=== PATIENT | female | born 1930 | race Caucasian/White ===

== ENCOUNTER → 2016-11-12 | Outpatient (CLI) | payer MEDICARE ==
[2016-11-12 11:36] LABS: ABSOLUTE LYMPHOCYTES (AUTO) 0.8 10^3/uL (0.5-4.7); ABSOLUTE MONOCYTES (AUTO) 0.6 10^3/uL (0.1-1.4); ABSOLUTE NEUT (AUTO) 14.1 10^3/uL (1.7-8.2); BASOPHILS % (AUTO) 0.1 % (0-2); HEMATOCRIT 42.6 % (36.0-47.0); HEMOGLOBIN 14.4 g/dL (12.0-15.5); HGB HCT DIFFERENCE 0.6; LYMPHOCYTES % (AUTO) 5.1 % (13-45); MEAN CORPUSCULAR HEMOGLOBIN 30.2 pg (27.0-33.4); MEAN CORPUSCULAR HGB CONC 33.9 g/dL (32.0-36.0); MEAN CORPUSCULAR VOLUME 89 fl (80-97); MONOCYTES % (AUTO) 3.7 % (3-13); RED BLOOD COUNT 4.78 10^6/uL (3.72-5.28); RED CELL DISTRIBUTION WIDTH 13.4 % (11.5-14.0); SEGMENTED NEUTROPHILS % (AUTO) 91.1 % (42-78); WHITE BLOOD COUNT 15.5 10^3/uL (4.0-10.5)
[2016-11-12 11:57] LABS: ALANINE AMINOTRANSFERASE 25 U/L (9-52); ALBUMIN 4.4 g/dL (3.5-5.0); ALKALINE PHOSPHATASE 126 U/L (38-126); ANION GAP 13 (5-19); ASPARTATE AMINO TRANSFERASE 33 U/L (14-36); BILIRUBIN,DIRECT 0.3 mg/dL (0.0-0.4); BILIRUBIN,TOTAL 0.9 mg/dL (0.2-1.3); BLOOD UREA NITROGEN 24 mg/dL (7-20); CALCIUM 9.9 mg/dL (8.4-10.2); CARBON DIOXIDE 25 mmol/L (22-30); CHLORIDE 104 mmol/L (98-107); CREATININE RESULT 1.08 mg/dL (0.52-1.25); GLUCOSE 189 mg/dL (75-110); LIPASE 57.4 U/L (23-300); POTASSIUM 5.5 mmol/L (3.6-5.0); SODIUM 142.4 mmol/L (137-145); TOTAL PROTEIN 7.7 g/dL (6.3-8.2)
--- NOTE | 2016-11-12 14:05 | RADIOLOGY REPORT (SQ) ---
EXAM DESCRIPTION: CT ABD/PELVIS WITH IV ORAL COMPLETED DATE/TIME: 11/12/2016 1:46 pm REASON FOR STUDY: MELENA (K92.1) K92.1 MELENA lower abdominal/pelvic pain COMPARISON: None. TECHNIQUE: CT scan of the abdomen and pelvis performed using helical scanning technique with dynamic intravenous contrast injection. Patient drank Oral contrast. Images reviewed with lung, soft tissue, and bone windows. Reconstructed coronal and sagittal MPR imag es reviewed. Delayed images for evaluation of the urinary system also acquired. All images stored on PACS. All CT scanners at this facility use dose modulation, iterative reconstruction, and/or weight based d osing when appropriate to reduce radiation dose to as low as reasonably achievable (ALARA). [facility]: Dose Right [facility]: CareDose [facility]: Dose Right [facility]: Teradose 4D [facility]: [employer] CONTRAST TYPE AND DOSE: contrast/concentration: Isovue 370.00 mg/ml; Total Contrast Delivered: 52.0 ml; Total Saline Delivered: 65.0 ml RENAL FUNCTION: Creatinine 1.0 RADIATION DOSE: Up-to-date CT equipment and radiation dose reduction techniques were employed. CTDIv ol: NaN - NaN mGy. DLP: 0 mGy-cm.. LIMITATIONS: None. FINDINGS: LOWER CHEST: Mild cardiomegaly. No nodules or infiltrates. LIVER: Normal size. Mildly prominent intrahepatic bile ducts without common duct dilatation. 2.7 cm cyst left lobe liver subdiaphragmatic surface, less than 1 cm cyst versus hemangioma left lobe liver sub- diaphragmatic surface. 1 cm cyst inferior right lobe liver. SPLEEN: Normal size. No focal lesions. PANCREAS: No masses. No significant calcifications. No adjacent inflammation or peripancreatic fluid collections. Pancreatic duct not dilated. GALLBLADDER: Gallstones. No inflammatory changes to suggest cholecystitis. ADRENAL GLANDS: No significant masses or asymmetry. RIGHT KIDNEY AND URETER: No solid masses. No significant calcifications. No hydronephrosis or hyd roureter. LEFT KIDNEY AND URETER: No solid masses. No significant calcifications. No hydronephrosis or hydr oureter. AORTA AND VESSELS: No aneurysm. No dissection. Renal arteries, SMA, celiac without stenosis. RETROPERITONEUM: No retroperitoneal adenopathy, hemorrhage or masses. BOWEL AND PERITONEAL CAVITY: There is oral contrast throughout the gastrointestinal tract. No CT taina dence of bowel obstruction or free intraperitoneal air or fluid. There is colon wall thickening lizabeth g the hepatic flexure colon and proximal half of the descending colon. This could indicate infectiou s or ischemic colitis. These findings are best shown on coronal reconstruction images 27 through 40. There are few sigmoid colon diverticuli present without CT evidence of acute diverticulitis APPENDIX: Not well seen. No right lower quadrant inflammatory change PELVIS: No mass. No free fluid. Normal bladder. Post hysterectomy ABDOMINAL WALL: No masses. No hernias. BONES: Mild degenerative change lower lumbar spine OTHER: No other significant finding. IMPRESSION: Colon wall thickening and luminal narrowing along the splenic flexure and proximal desce nding colon. Findings worrisome for infectious or ischemic colitis. Sigmoid colon diverticuli without CT evidence of acute diverticulitis Multiple stones in the gallbladder Report called to Janel VANG at the time of dictation TECHNICAL DOCUMENTATION: JOB ID: [id number] Quality ID # [id number]: Final reports with documentation of one or more dose reduction techniques (e.g., Au tomated exposure control, adjustment of the mA and/or kV according to patient size, use of iterative reconstruction technique) 2010 [employer]- All Rights Reserved
== END ==
LOC: RAD 11:06
PROVIDERS: ATTEND Physician Assistant
DX: K92.1 Melena (principal); K57.30 Diverticulosis of large intestine without perforation or abscess without bleeding; K80.20 Calculus of gallbladder without cholecystitis without obstruction; I51.7 Cardiomegaly
CPT/HCPCS: 36415; 74177; 80053; 83690; 85025

== ENCOUNTER 2017-11-03 16:13 | Emergency (ER) | payer MEDICARE ==
[2017-11-03] MEDS ORDERED: IBUPROFEN 600 MG TABLET PO ONE (16:37)
--- NOTE | 2017-11-03 16:40 | ER Document Report ---
ED General Pain - General Chief Complaint: Low Back Pain Stated Complaint: FALL/LOWER BACK PAIN Time Seen by Provider: 11/03/17 16:36 Mode of Arrival: Ambulatory Information source: Patient Notes: Chief complaint: fall. History of complain:( obtained from----patient) 86 years old female while was getting out of the back door of her house, tripped and fell 2 steps and landed on her back. Since then having lower back pain therefore presented to the ED. She was ambulatory. Has no discomfort on walking. No head injury loss of consciousness. No neck pain neck stiffness. Denies any injury or pain over the thoracal upper lumbar region. No pain or injury to the upper limbs and lower limbs. Onset: Just prior to arrival sudden Duration: Just prior to arrival Severity: Mild to moderate Quality: Sharp Context: 4 Exacerbating factor and relieving factors: Change of position from sitting to standing REVIEW OF SYSTEMS: CONSTITUTIONAL : Denies fever, chills, or sweats. Denies recent illness. EENT: Denies eye, ear, throat, or mouth pain or symptoms. Denies nasal or sinus congestion or discharge. Denies throat, tongue, or mouth swelling or difficulty swallowing. CARDIOVASCULAR: Denies chest pain. Denies palpitations or racing or irregular heart beat. Denies ankle edema. RESPIRATORY: Denies cough, cold, or chest congestion. Denies shortness of breath, difficulty breathing, or wheezing. GASTROINTESTINAL: Denies distention. Denies nausea, vomiting, or diarrhea. Denies blood in vomitus, stools, or per rectum. Denies black, tarry stools. Denies constipation. GENITOURINARY: Denies difficulty urinating, painful urination, burning, frequency, blood in urine, or discharge. FEMALE GENITOURINARY: Denies vaginal bleeding, heavy or abnormal periods, irregular periods. Denies vaginal discharge or odor. MUSCULOSKELETAL: Denies back or neck pain or stiffness. Denies joint pain or swelling. SKIN: Denies rash, lesions or sores. HEMATOLOGIC : Denies easy bruising or bleeding. LYMPHATIC: Denies swollen, enlarged glands. NEUROLOGICAL: Denies confusion or altered mental status. Denies passing out or loss of consciousness. Denies dizziness or lightheadedness. Denies headache. Denies weakness or paralysis or loss of use of either side. Denies problems with gait or speech. Denies sensory loss, numbness, or tingling. Denies seizures. PSYCHIATRIC: Denies anxiety or stress. Denies depression, suicidal ideation, or homicidal ideation. ALL OTHER SYSTEMS REVIEWED AND NEGATIVE. PHYSICAL EXAMINATION: GENERAL: Well-appearing, well-nourished and in no acute distress. HEAD: Atraumatic, normocephalic. EYES: Pupils equal round and reactive to light, extraocular movements intact, conjunctiva are normal. ENT: Nares patent, oropharynx clear without exudates. Moist mucous membranes. NECK: Normal range of motion, supple without lymphadenopathy LUNGS: Breath sounds clear to auscultation bilaterally and equal. No wheezes rales or rhonchi. HEART: Regular rate and rhythm without murmurs ABDOMEN: Soft, nontender, nondistended abdomen. No guarding, no rebound. No masses appreciated. Examination of genitals-deferred Musculoskeletal: Normal range of motion, no pitting or edema. No cyanosis. Lower lumbar region-tenderness over the sacral lumbar region of the back. No obvious deformity. No swelling. Neurovascular function distally was within normal limit. NEUROLOGICAL: Cranial nerves grossly intact. Normal speech, normal gait. Normal sensory, motor exams PSYCH: Normal mood, normal affect. SKIN: Warm, Dry, normal turgor, no rashes or lesions noted. Dictation was performed using [employer] voice recognition software TRAVEL OUTSIDE OF THE [place] IN LAST 30 DAYS: No - Related Data Allergies/Adverse Reactions: No Known Allergies Allergy (Verified 11/03/17 16:23) Past Medical History - Social History Smoking Status: Never Smoker Chew tobacco use (# tins/day): No Frequency of alcohol use: None Drug Abuse: None Lives with: Family Family History: Reviewed & Not Pertinent Patient has suicidal ideation: No Patient has homicidal ideation: No - Past Medical History Cardiac Medical History: Reports: Hx Hypertension Denies: Hx Heart Attack Pulmonary Medical History: Denies: Hx Asthma Neurological Medical History: Denies: Hx Cerebrovascular Accident, Hx Seizures Renal/ Medical History: Denies: Hx Peritoneal Dialysis GI Medical History: Denies: Hx Hepatitis, Hx Hiatal Hernia, Hx Ulcer Infectious Medical History: Denies: Hx Hepatitis Past Surgical History: Reports: Hx Hysterectomy. Denies: Hx Mastectomy, Hx Open Heart Surgery, Hx Pacemaker Review of Systems - Review of Systems Notes: Dictated Physical Exam - Vital signs Vitals: Temp Pulse Resp BP Pulse Ox 98.1 F 84 18 155/78 H 95 11/03/17 16:20 11/03/17 16:20 11/03/17 16:20 11/03/17 16:20 11/03/17 16:20 - Notes Notes: Dictated Course - Vital Signs Vital signs: Temp Pulse Resp BP Pulse Ox 97.9 F 60 18 167/82 H 99 11/03/17 18:31 11/03/17 18:31 11/03/17 18:31 11/03/17 18:31 11/03/17 18:31 - Diagnostic Test Radiology reviewed: Reports reviewed - X-ray of the lumbosacral spine/pelvic girdle reported by radiologist as no acute fractures Discharge - Discharge Clinical Impression: Lower back pain Qualifiers: Chronicity: acute Back pain laterality: bilateral Sciatica presence: without sciatica Qualified Code(s): M54.5 - Low back pain Fall Qualifiers: Encounter type: initial encounter Qualified Code(s): W19.XXXA - Unspecified fall, initial encounter Condition: Fair Disposition: HOME, SELF-CARE Instructions: Low Back Pain ([facility]), Muscle Strain ([facility]) Referrals: WEI JACKSON PA [PHYSICIAN [facility]] - Follow up as needed
--- NOTE | 2017-11-03 17:28 | RADIOLOGY REPORT (SQ) ---
EXAM DESCRIPTION: PELVIS AP COMPLETED DATE/TIME: 11/03/2017 5:18 pm REASON FOR STUDY: Fall with back injury COMPARISON: None. NUMBER OF VIEWS: One view TECHNIQUE: AP Pelvis LIMITATIONS: None. FINDINGS: MINERALIZATION: Normal. HIPS: No acute fracture or dislocation. No worrisome bone lesions. Mild degenerative changes are pre sent bilaterally. PELVIS AND SACRUM: No acute fracture or dislocation. No worrisome bone lesions. PUBIS AND ISCHIUM: No acute fracture. LOWER LUMBAR SPINE: No significant findings as visualized. SOFT TISSUES: No findings. OTHER: No other significant finding. IMPRESSION: NEGATIVE STUDY OF THE PELVIS. TECHNICAL DOCUMENTATION: JOB ID: [id number] [employer]- All Rights Reserved Reading location - IP/workstation name: [email or web address]
--- NOTE | 2017-11-03 17:31 | RADIOLOGY REPORT (SQ) ---
EXAM DESCRIPTION: L SPINE WHOLE COMPLETED DATE/TIME: 11/03/2017 5:18 pm REASON FOR STUDY: Fall with back injury COMPARISON: CT abdomen and pelvis 11/12/2016 NUMBER OF VIEWS: Five views including obliques. TECHNIQUE: AP, lateral, oblique, and sacral radiographic images acquired of the lumbar spine. LIMITATIONS: None. FINDINGS: MINERALIZATION: Osteopenia. SEGMENTATION: Normal. No transitional anatomy. ALIGNMENT: Mild levoconvex lateral curvature may be positional. VERTEBRAE: Maintained height. No fracture or worrisome bone lesion. DISCS: Mild loss of intervertebral disc height involving predominantly the L3/4 level. POSTERIOR ELEMENTS: Pedicles and facets are intact. Mild facet arthropathy seen at all levels. No p ars defect or posterior arch defects. HARDWARE: None in the spine. PARASPINAL SOFT TISSUES: Normal. PELVIS: Intact as visualized. No fractures or worrisome bone lesions. SI joints intact. OTHER: No other significant finding. IMPRESSION: Mild multilevel spondylotic change. No evidence of acute osseous injury. TECHNICAL DOCUMENTATION: JOB ID: [id number] [employer]- All Rights Reserved Reading location - IP/workstation name: [email or web address]
[2017-11-03 18:35] VITALS: BP 167/82
== END 2017-11-03 18:36 | disposition home or self-care (01) ==
LOC: ER 16:13
DX: M54.5 Low back pain (principal); W10.9XXA Fall (on) (from) unspecified stairs and steps, initial encounter; Y92.008 Other place in unspecified non-institutional (private) residence as the place of occurrence of the external cause; I10 Essential (primary) hypertension
CPT/HCPCS: 99283; 72110; 72170; A9270

== ENCOUNTER → 2018-05-27 | Outpatient (CLI) | payer MEDICARE ==
[2018-05-27 13:45] LABS: ANION GAP 11 (5-19); BLOOD UREA NITROGEN 22 mg/dL (7-20); CALCIUM 9.8 mg/dL (8.4-10.2); CARBON DIOXIDE 28 mmol/L (22-30); CHLORIDE 103 mmol/L (98-107); GLUCOSE 97 mg/dL (75-110); POTASSIUM 4.7 mmol/L (3.6-5.0); SODIUM 142.2 mmol/L (137-145)
== END ==
LOC: OD 12:39
PROVIDERS: ATTEND Family Medicine
DX: E87.5 Hyperkalemia (principal)
CPT/HCPCS: 36415; 80048

== ENCOUNTER → 2018-09-07 | Outpatient (CLI) | payer MEDICAID, MEDICARE ==
--- NOTE | 2018-09-07 16:40 | RADIOLOGY REPORT (SQ) ---
EXAM DESCRIPTION: CT HEAD WITHOUT COMPLETED DATE/TIME: 09/07/2018 3:17 pm REASON FOR STUDY: R41.3 OTHER AMNESIA R41.3 OTHER AMNESIA COMPARISON: 07/26/2014 TECHNIQUE: Axial images acquired through the brain without intravenous contrast. Images reviewed wi th bone, brain and subdural windows. Additional sagittal and coronal reconstructions were generated. Images stored on PACS. All CT scanners at this facility use dose modulation, iterative reconstruction, and/or weight based d osing when appropriate to reduce radiation dose to as low as reasonably achievable (ALARA). [facility]: Dose Right [facility]: CareDose [facility]: Dose Right [facility]: Teradose 4D [facility]: [employer] RADIATION DOSE: CT Rad equipment meets quality standard of care and radiation dose reduction techniq ues were employed. CTDIvol: 48.5 mGy. DLP: 855 mGy-cm. mGy. LIMITATIONS: None. FINDINGS: VENTRICLES: Prominent ventricles secondary to involutional atrophy. CEREBRUM: Cortical atrophy. No masses. No hemorrhage. No midline shift. No evidence for acute inf arction. Extensive areas of low density in the white matter most likely chronic small vessel ischemic changes. CEREBELLUM: No masses. No hemorrhage. No alteration of density. No evidence for acute infarction. EXTRAAXIAL SPACES: No fluid collections. No masses. ORBITS AND GLOBE: No intra- or extraconal masses. Normal contour of globe without masses. CALVARIUM: No fracture. PARANASAL SINUSES: No fluid or mucosal thickening. SOFT TISSUES: No mass or hematoma. OTHER: No other significant finding. IMPRESSION: MICROVASCULAR ISCHEMIA AND GENERALIZED ATROPHY. NO ACUTE IMAGING FINDINGS IN THE BRAIN EVIDENCE OF ACUTE STROKE: NO. COMMENT: Quality ID # [id number]: Final reports with documentation of one or more dose reduction techniques (e.g., Automated exposure control, adjustment of the mA and/or kV according to patient size, use of iterative reconstruction technique) TECHNICAL DOCUMENTATION: JOB ID: [id number] [employer]- All Rights Reserved Reading location - IP/workstation name: [email or web address]
== END ==
LOC: RAD 14:48
PROVIDERS: ATTEND Physician Assistant
DX: R41.3 Other amnesia (principal)
CPT/HCPCS: 70450

== ENCOUNTER → 2018-12-30 | Outpatient (CLI) | payer MEDICARE ==
--- NOTE | 2018-12-30 11:10 | WOMENS IMAGING REPORT ---
EXAM DESCRIPTION: U/S ABDOMEN TOTAL COMPLETED DATE/TIME: 12/30/2018 11:00 am REASON FOR STUDY: K80/20 CALCULUS OF GALLBLADDER W/O CHOLECYSTITIS K80.20 CALCULUS OF GALLBLADDER W /O CHOLECYSTITIS W/O OBSTRUC COMPARISON: 11/12/2016 TECHNIQUE: Dynamic and static grayscale images acquired of the abdomen and recorded on PACS. Additio nal selected color Doppler and spectral images recorded. LIMITATIONS: None. FINDINGS: PANCREAS: Limited visualization due to overlying bowel gas. LIVER: There is a cyst in the left lobe stable from 2017. Echogenicity is normal. LIVER VASCULATURE: Normal directional flow of the main portal vein and hepatic veins. GALLBLADDER: Echodensity along the dependent wall of gallbladder consistent with gallstones. No thic kening of gallbladder wall. No pericholecystic fluid collection. ULTRASOUND-DETECTED SCHOFIELD'S SIGN: Negative. INTRAHEPATIC DUCTS AND COMMON DUCT: CBD and intrahepatic ducts normal caliber. No filling defects. INFERIOR VENA CAVA: Normal flow. AORTA: No aneurysm. RIGHT AND LEFT KIDNEY: Normal size. Normal echogenicity. No solid or suspicious masses. No hydroneph rosis. No calcifications. SPLEEN: Normal in size. No masses. PERITONEAL AND RIGHT PLEURAL SPACE: No ascites or effusions. OTHER: No other significant finding. IMPRESSION: Gallstones otherwise normal abdominal ultrasound. TECHNICAL DOCUMENTATION: JOB ID: [id number] [employer]- All Rights Reserved Reading location - IP/workstation name: [email or web address]
== END ==
LOC: WI 10:15
PROVIDERS: ATTEND Family Medicine
DX: K80.20 Calculus of gallbladder without cholecystitis without obstruction (principal)
CPT/HCPCS: 76700

== ENCOUNTER → 2020-02-28 | Outpatient (CLI) | payer MEDICARE ==
--- NOTE | 2020-03-01 00:16 | XCELERA REPORT ---
[address] [address] Transthoracic Echocardiogram Report Name: MADISYN TERRELL Age: 89 yrs Gender: Female : 1930 Patient Status: Outpatient Patient Location: Study Date: 02/28/2020 01:10 PM Height: 65 in Weight: 102 lb BSA: 1.5 m2 Procedure: A two-dimensional transthoracic echocardiogram with color flow and Doppler was performed. Study Quality: Poor. Reason For Study: SOB History: Shortness of breath. Ordering Physician: WEI TRIPATHI Performed By: Mara Katz Interpretation Summary There is normal left ventricular wall thickness. LV EF is 40% Left ventricular systolic function is moderately reduced. There is moderate global hypokinesis of the left ventricle. There is no thrombus. CANNOT ASSESS ASD,VSD,OR PFO. The right ventricle is moderately dilated. There is mild right ventricular hypertrophy. The right ventricular systolic function is mild to moderately reduced. The right atrium is moderately dilated. The left atrium is moderately dilated. There is no vegetation seen on the mitral valve. There is no mitral valve stenosis. There is a mild to moderate amount of mitral regurgitation There is no aortic valvular vegetation. There is no aortic valve stenosis There is aortic sclerosis without aortic stenosis. No aortic regurgitation is present. There is no tricuspid stenosis. There is a moderate to severe amount of tricuspid regurgitation There is mild pulmonary hypertension by echo RVSP is 33 mm of Hg, with RA mean of 10. There is no pulmonic valvular stenosis. There is no pulmonic valvular regurgitation. The aortic root is not well visualized but is probably normal size. The inferior vena cava was not visualized There is no pericardial effusion. MMode/2D Measurements & Calculations RVDd: 2.8 cm LVIDd: 4.0 cm FS: 21.1 % Ao root diam: 2.7 cm IVSd: 0.92 cm LVIDs: 3.2 cm EDV(Teich): 71.3 mlAo root area: LVPWd: 0.93 cm ESV(Teich): 40.3 ml5.9 cm2 EF(Teich): 43.5 % LA dimension: 3.8 cm LVOT diam: 2.0 cm LVLd ap4: 6.4 cm SV(MOD-sp4): LVOT area: EDV(MOD-sp4): 30.0 ml 75.0 ml 3.0 cm2 LVLs ap4: 5.6 cm ESV(MOD-sp4): 45.0 ml EF(MOD-sp4): 40.0 % Doppler Measurements & Calculations MV E max linda: MV P1/2t max linda: Ao V2 max: LV V1 max P.3 cm/sec 100.8 cm/sec 81.4 cm/sec 1.0 mmHg MV P1/2t: 73.1 msec Ao max P.7 mmHgLV V1 max: MVA(P1/2t): 3.0 cm2 MAXWELL(V,D): 1.9 cm2 50.1 cm/sec MV dec slope: LV dP/dt: 826.0 mmHg/s 403.9 cm/sec2 MV dec time: 0.13 sec PA V2 max: TR max linda: MV P1/2t-pr_phl: 70.6 cm/sec 237.0 cm/sec 73.1 msec PA max PG: TR max P.5 mmHg 2.0 mmHg Left Ventricle The left ventricle is mildly dilated. There is normal left ventricular wall thickness. LV EF is 40%. Left ventricular systolic function is moderately reduced. LV diastolic function could not be adequately assessed due to atrial fibrilation. There is moderate global hypokinesis of the left ventricle. There is no thrombus. CANNOT ASSESS ASD,VSD,OR PFO. Right Ventricle The right ventricle is moderately dilated. There is mild right ventricular hypertrophy. The right ventricular systolic function is mild to moderately reduced. Atria The right atrium is moderately dilated. The left atrium is moderately dilated. Mitral Valve There is no evidence of mitral valve prolapse. There is no vegetation seen on the mitral valve. There is no mitral valve stenosis. There is a mild to moderate amount of mitral regurgitation. Aortic Valve There is no aortic valvular vegetation. There is no aortic valve stenosis. There is aortic sclerosis without aortic stenosis. No aortic regurgitation is present. Tricuspid Valve There is no tricuspid stenosis. There is a moderate to severe amount of tricuspid regurgitation. There is mild pulmonary hypertension by echo. RVSP is 33 mm of Hg, with RA mean of 10. Pulmonic Valve There is no pulmonic valvular stenosis. There is no pulmonic valvular regurgitation. Great Vessels The aortic root is not well visualized but is probably normal size. The inferior vena cava was not visualized. Effusions There is no pericardial effusion. : WEI TRIPATHI, Carmen
== END ==
LOC: SP 12:49
PROVIDERS: ATTEND Physician Assistant
DX: R06.02 Shortness of breath (principal)
CPT/HCPCS: 93306

== ENCOUNTER → 2020-04-04 | Outpatient (CLI) | payer MEDICARE ==
[2020-04-04 11:40] LABS: PROTHROMBIN TIME 18.3 SEC (11.4-15.4)
[2020-04-04 11:57] LABS: ANION GAP 11 (5-19); BLOOD UREA NITROGEN 29 mg/dL (7-20); CALCIUM 9.7 mg/dL (8.4-10.2); CARBON DIOXIDE 26 mmol/L (22-30); CHLORIDE 106 mmol/L (98-107); GLUCOSE 81 mg/dL (75-110); POTASSIUM 5.3 mmol/L (3.6-5.0)
== END ==
LOC: OD 09:58
PROVIDERS: ATTEND Physician Assistant
DX: N28.9 Disorder of kidney and ureter, unspecified (principal); Z79.01 Long term (current) use of anticoagulants
CPT/HCPCS: 36415; 80048; 85610